=== PATIENT | male | born 1960 | race Two or more races ===

== ENCOUNTER 2024-01-10 03:09 | Inpatient (IN) | payer MEDICAID, OTHER ==
[~2024-01-10] VITALS: Ht 167.6 cm; Wt 160.0 kg
[2024-01-10 04:43] LABS: Urine Bacteria None Seen /hpf (None Seen)
[2024-01-10 05:03] LABS: Urine WBC 19 /hpf (0 - 3)
[2024-01-10 05:04] LABS: Urine Clarity TURBID (Clear); Urine Color Red (Yellow); Urine Protein, UAD 2+ (Negative); Urine Specific Gravity 1.025 (1.001-1.035); Urine Urobilinogen Normal (Negative)
[2024-01-10 05:05] LABS: Urine Blood 3+ /uL (Negative)
[2024-01-10 05:25] VITALS: PULSE 75; RESP 11; O2SAT 96
[2024-01-10 05:28] LABS: Amphetamine Screen, Urine Neg (NEGATIVE); Barbiturate Scree,Urine Neg (NEGATIVE); Benzodiazephine Screen, Urine Neg (NEGATIVE); Cocaine Screen, Urine Neg (NEGATIVE); Opiate Scree,Urine Neg (NEGATIVE)
[2024-01-10 05:29] LABS: Cannabinoid Screen, Urine Neg (NEGATIVE); Phencyclidine Screen, Urine Neg (NEGATIVE)
[2024-01-10] MEDS: LIDOCAINE 2% TOPICAL JELLY 5 ML URJT TOP ONE (05:30)
[2024-01-10] MEDS: LIDOCAINE 2% JELLY 11ml (GLYDO) ONE (05:31)
[2024-01-10] MEDS: levoFLOXacin 500MG 100 ML IV ONE (06:00)
[2024-01-10] MEDS: MORPHINE SULFATE 4 MG/ML SYR/VIAL IV ONE (06:01)
[2024-01-10 06:59] LABS: Basophils # (auto) 0 10 ^3/uL (0-0.2); Basophils % (auto) 0.3 % (0.0-2.0); Eosinophils # (auto) 0 10 ^3/uL (0-0.8); Eosinophils % (auto) 0.2 % (0.0-7.0); Hematocrit 33.8 % (41.0-53.0); Hemoglobin 11.4 g/dL (13.5-17.5); Lymphocytes % (auto) 11.6 % (10.0-50.0); Mean Corpuscular Hemoglobin 31.2 pg (28.0-32.0); Mean Corpuscular Hgb Conc. 33.7 g/dL (32.0-36.0); Mean Corpuscular Volume 92.5 fL (80.0-100.0); Monocytes # (auto) 0.4 10 ^3/uL (0-1.3); Monocytes % (auto) 4.3 % (0.0-12.0); Neutrophils # (auto) 6.9 10 ^3/uL (1.6-8.6); Neutrophils % (auto) 83.6 % (37.0-80.0); Nucleated Red Blood Cells % 0.1 %; Platelet Count (auto) 272 10^3/uL (140-450); Red Blood Cells 3.65 10^6/uL (4.5-5.90); Red Cell Distribution Width 14.7 % (11.8-14.3); White Blood Cell 8.2 10^3/uL (4.4-10.8)
[2024-01-10 07:04] LABS: INR 1.01 (0.9-1.15); Partial Thromboplastin Time 25.1 SEC (24.5-34.5); Prothrombin Time 10.7 sec (9.3-11.8)
[2024-01-10 07:09] LABS: Alanine Aminotransferase 15 U/L (7-40); Albumin 4.1 g/dL (3.2-4.8); Alkaline Phosphatase 122 U/L (46-116); Anion Gap 6 (5-15); Aspartate Aminotransferase 12 U/L (13-40); BUN/Creatinine Ratio 15.5 (10.0-20.0); Bilirubin, Total 0.3 mg/dL (0.2-1.0); Blood Urea Nitrogen 17 mg/dL (9-23); Carbon Dioxide 23 mmol/L (20-31); Chloride 109 mmol/L (98-107); Glucose 119 mg/dL (74-106); Potassium 4.9 mmol/L (3.5-5.1); Sodium 138 mmol/L (136-145)
[2024-01-10 08:00] VITALS: O2SAT 97
[2024-01-10 08:42] VITALS: BP 111/60; PULSE 53; RESP 13; TEMP 97.9; O2SAT 97
[2024-01-10] MEDS ORDERED: PNEUMOCOCCAL VACC POLYS 25 MCG/0.5 ML VIAL IM ONE (10:30)
[2024-01-10] MEDS ORDERED: fentaNYL CITRATE 100 MCG/2 ML VL ONE (14:31)
[2024-01-10] MEDS ORDERED: ceFAZolin 1GM VL ONE (15:02)
[2024-01-10] MEDS ORDERED: KETAMINE 50mg/ML 1ml syringe ONE (15:02)
[2024-01-10] MEDS: cefTRIAXone 1GM/50ML D5W 50 ML IV SCH (15:06)
[2024-01-10 16:19] VITALS: PULSE 64; RESP 12; O2SAT 97
[2024-01-10] MEDS ORDERED: hydrALAZINE HCL 20 MG/ML VL IV PRN (16:30)
[2024-01-10] MEDS ORDERED: HYDROmorphone HCL 2 MG/ML VL/or syr IV PRN ×2 (16:30)
[2024-01-10 20:00] VITALS: PULSE 59; RESP 17; O2SAT 94
[2024-01-10 21:00] VITALS: BP 122/73; PULSE 59; RESP 17; TEMP 98; O2SAT 94
[2024-01-10] MEDS: ACETAMINOPHEN 325 MG TAB PO PRN (23:11)
[2024-01-10] MEDS: ONDANSETRON HCL 4 MG/2 ML VIAL IV ONE (23:11)
[2024-01-11] VITALS (8 sets, daily range): BP systolic 109–144; BP diastolic 54–80; PULSE 59–85; RESP 17–18; TEMP 97.7–99.3; O2SAT 93–97
[2024-01-11] MEDS: ONDANSETRON HCL 4 MG/2 ML VIAL IV PRN (06:01)
[2024-01-11 07:12] LABS: Chloride 110 mmol/L (98-107); Potassium 5.2 mmol/L (3.5-5.1); Sodium 139 mmol/L (136-145)
[2024-01-11 07:13] LABS: Anion Gap 3 (5-15); Calcium 9.1 mg/dL (8.7-10.4); Carbon Dioxide 26 mmol/L (20-31)
[2024-01-11 07:19] LABS: BUN/Creatinine Ratio 9.8 (10.0-20.0); Blood Urea Nitrogen 10 mg/dL (9-23); Glucose 93 mg/dL (74-106)
[2024-01-11 09:38] LABS: Hepatitis B Surface Antigen Negative (Negative)
[2024-01-11] MEDS: SODIUM ZIRCONIUM CYCL 10 GM PAK PO ONE (09:48)
[2024-01-11] MEDS: MORPHINE SULFATE 4 MG/ML SYR/VIAL IV ONE (09:49)
[2024-01-11 09:59] LABS: Hepatitis C Antibody Negative (Negative)
[2024-01-11] MEDS ORDERED: PNEUMOCOCCAL VACC POLYS 25 MCG/0.5 ML VIAL IM ONE (11:30)
[2024-01-11 12:17] LABS: Basophils # (auto) 0 10 ^3/uL (0-0.2); Basophils % (auto) 0.3 % (0.0-2.0); Eosinophils # (auto) 0.1 10 ^3/uL (0-0.8); Eosinophils % (auto) 0.9 % (0.0-7.0); Hematocrit 34.4 % (41.0-53.0); Hemoglobin 11.7 g/dL (13.5-17.5); Lymphocytes # (auto) 1.2 10 ^3/uL (0.4-5.4); Lymphocytes % (auto) 11.4 % (10.0-50.0); Mean Corpuscular Hemoglobin 31.6 pg (28.0-32.0); Mean Corpuscular Hgb Conc. 33.9 g/dL (32.0-36.0); Mean Corpuscular Volume 93.3 fL (80.0-100.0); Monocytes # (auto) 0.7 10 ^3/uL (0-1.3); Monocytes % (auto) 6.3 % (0.0-12.0); Neutrophils # (auto) 8.4 10 ^3/uL (1.6-8.6); Neutrophils % (auto) 81.1 % (37.0-80.0); Platelet Count (auto) 271 10^3/uL (140-450); Red Blood Cells 3.69 10^6/uL (4.5-5.90); Red Cell Distribution Width 14.8 % (11.8-14.3); White Blood Cell 10.3 10^3/uL (4.4-10.8)
[2024-01-11 12:57] LABS: Chloride 107 mmol/L (98-107); Potassium 4.2 mmol/L (3.5-5.1); Sodium 138 mmol/L (136-145)
[2024-01-11 12:58] LABS: Anion Gap 3 (5-15); Calcium 8.7 mg/dL (8.7-10.4); Carbon Dioxide 28 mmol/L (20-31)
[2024-01-11 13:03] LABS: Blood Urea Nitrogen 12 mg/dL (9-23); Glucose 127 mg/dL (74-106)
[2024-01-12] VITALS (8 sets, daily range): BP systolic 114–129; BP diastolic 63–82; PULSE 62–75; RESP 17–18; TEMP 97.7–98.7; O2SAT 94–97
[2024-01-12] MEDS ORDERED: CEPH250C PO (09:17)
[2024-01-12] MEDS ORDERED: ACET-1882 PO (09:17)
== END 2024-01-12 17:34 | disposition home or self-care (01) | DRG 482 ==
LOC: ER 03:09 → OVERFLOW 06:23 → CENTRAL 08:29
PROVIDERS: ADMIT Nurse Practitioner; ATTEND Student in an Organized Health Care Education/Training Program
PROC: 0V508ZZ Destruction of Prostate, Via Natural or Artificial Opening Endoscopic (ICD-10-PCS; 2024-01-10)
PROC: 0VB08ZZ Excision of Prostate, Via Natural or Artificial Opening Endoscopic (ICD-10-PCS; 2024-01-10)
PROC: 0TCB8ZZ Extirpation of Matter from Bladder, Via Natural or Artificial Opening Endoscopic (ICD-10-PCS; principal; 2024-01-10 14:32)
DX: N40.1 Benign prostatic hyperplasia with lower urinary tract symptoms (principal); N13.8 Other obstructive and reflux uropathy; N39.0 Urinary tract infection, site not specified; R31.0 Gross hematuria; R33.8 Other retention of urine; N32.89 Other specified disorders of bladder; Z90.49 Acquired absence of other specified parts of digestive tract; D50.0 Iron deficiency anemia secondary to blood loss (chronic)
CPT/HCPCS: 36415; 74176; 80048; 80053; 80307; 81001; 83880; 84484; 85025; 85610; 85730; 86803; 86850; 86900; 86901; 87340; 93005; 96365; 96375; G0378; J0690; J1956; J2405